=== PATIENT | female | born 1955 | race Caucasian/White ===

== ENCOUNTER 2023-11-05 18:52 | Emergency (ER) | payer MEDICARE ==
[2023-11-05 19:03] VITALS: RESP 18; TEMP 98.3
[2023-11-05] MEDS ORDERED: SODIUM CHLORIDE 0.9% 500 ML 500 ML IV STA (19:12)
--- NOTE | 2023-11-05 19:26 | ED ---
Fall HPI - General Chief Complaint: Syncope Stated Complaint: Fall w/Syncope Time Seen by Provider: 11/05/23 19:02 Source: EMS, RN notes reviewed, old records reviewed, Caregiver Mode of arrival: EMS Limitations: no limitations - History of Present Illness Initial Comments: This is a 68-year-old female to the emergency department for evaluation of a syn cope event, this event occurred prior to arrival with history of similar events in the past. Patient has no headache chest pain shortness breath abdominal pain, she did hit her head with this fall. Had chest pain. No shortness of breath. No complaints patient does not like being in the hospital MD Complaint: fall, other (Syncope) -: minutes(s) Fall From: standing When Fall Occurred: 1 hour [employer] Fall Witnessed: yes, by family Place Fall Occurred: home Loss of Consciousness: none Prolonged Down Time?: no Symptoms Prior to Fall: none Location: head Severity: moderate Severity scale (1-10): 3 Quality: sharp Context: tripped/slipped Associated Symptoms: denies - Related Data Allergies Allergy/AdvReac Type Severity Reaction Status Date / Time Penicillins Allergy Unknown Verified 11/05/23 19:00 Childhood Review of Systems ROS Statement: Those systems with pertinent positive or pertinent negative responses have been documented in the HPI. ROS Other: All systems not noted in ROS Statement are negative. Past Medical History Past Medical History: CVA/TIA, Fibromyalgia, Musculoskeletal Disorder, Rheumatoid Arthritis (RA) History of Any Multi-Drug Resistant Organisms: None Reported Past Surgical History: Appendectomy, Cholecystectomy, Hysterectomy Past Psychological History: No Psychological Hx Reported Smoking Status: Current every day smoker Past Alcohol Use History: Rare Past Drug Use History: Marijuana General Exam Limitations: no limitations General appearance: alert, in no apparent distress Head exam: Present: normocephalic, normal inspection. Absent: atraumatic (Right eye hematoma) Eye exam: Present: normal appearance, PERRL, EOMI. Absent: scleral icterus, conjunctival injection, periorbital swelling ENT exam: Present: normal exam, mucous membranes moist Neck exam: Present: normal inspection. Absent: tenderness, meningismus, lymphadenopathy Respiratory exam: Present: normal lung sounds bilaterally. Absent: respiratory distress, wheezes, rales, rhonchi, stridor Cardiovascular Exam: Present: regular rate, normal rhythm, normal heart sounds. Absent: systolic murmur, diastolic murmur, rubs, gallop, clicks GI/Abdominal exam: Present: soft, normal bowel sounds. Absent: distended, tenderness, guarding, rebound, rigid Extremities exam: Present: normal inspection, full ROM, normal capillary refill. Absent: tenderness, pedal edema, joint swelling, calf tenderness Back exam: Present: normal inspection Neurological exam: Present: alert, oriented X3, CN II-XII intact Psychiatric exam: Present: normal affect, normal mood Skin exam: Present: warm, dry, intact, normal color. Absent: rash Course Vital Signs 11/05/23 11/05/23 11/05/23 18:54 18:59 19:59 Temperature 98.3 F 98.3 F Pulse Rate 66 74 75 Respiratory 18 18 18 Rate Blood Pressure 109/58 107/79 102/36 O2 Sat by Pulse 96 96 96 Oximetry 11/05/23 22:54 Temperature 98.3 F Pulse Rate 69 Respiratory 18 Rate Blood Pressure 92/64 O2 Sat by Pulse 94 L Oximetry - Reevaluation(s) Reevaluation #1: 11/05/23 20:11 Medical records reviewed Reevaluation #2: Patient symptoms are unchanged with no recurrent syncope Reevaluation #3: Patient informed of results and questions answered Reevaluation #4: 11/05/23 19:26 Was pt. sent in by a medical professional or institution (LISA Soler, HOTEL ASSISTANT GENERAL MANAGER, urgent care, hospital, or custodial...) When possible be specific @ -no Did you speak to anyone other than the patient for history (EMS, parent, family, police, friend...)? What history was obtained from this source @ -no Did you review nursing and triage notes (agree or disagree)? Why? @ -agree Are old charts reviewed (outside hosp., previous admission, EMS record, old EKG, old radiological studies, urgent care reports/EKG's, custodial records)? Report findings @ -yes Differential Diagnosis (chest pain, altered mental status, abdominal pain women, abdominal pain men, vaginal bleeding, weakness, fever, dyspnea, syncope, headache, dizziness, GI bleed, back pain, seizure, CVA, palpatations, mental health, musculoskeletal)? @ -prior EKG interpreted by me (3pts min.). @ -yes X-rays interpreted by me (1pt min.). @ -no CT interpreted by me (1pt min.). @ -yes negative for acute disease U/S interpreted by me (1pt. min.). @ -no What testing was considered but not performed or refused? (CT, X-rays, U/S, labs)? Why? @ -none What meds were considered but not given or refused? Why? @ -none Did you discuss the management of the patient with other professionals (professionals i.e. Dr., PA, HOTEL ASSISTANT GENERAL MANAGER, lab, RT, psych nurse, delinquency prevention social worker, crystal cutter, teacher, targeting acquisition officer, telephonic nurse case manager)? Give summary @ -no Was smoking cessation discussed for >3mins.? @ -no Was critical care preformed (if so, how long)? @ -no Were there social determinants of health that impacted care today? How? (Homelessness, low income, unemployed, alcoholism, drug addiction, transportation, low edu. Level, literacy, decrease access to med. care, usp, rehab)? @ -none Was there de-escalation of care discussed even if they declined (Discuss DNR or withdrawal of care, Hospice)? DNR status @ -no What co-morbidities impacted this encounter? (DM, HTN, Smoking, COPD, CAD, Cancer, CVA, ARF, Chemo, Hep., AIDS, mental health diagnosis, sleep apnea, morbid obesity)? @ -none Was patient admitted / discharged? Hospital course, mention meds given and route, prescriptions, significant lab abnormalities, going to OR and other pertinent info. @ - 68 female to the emergency department for evaluation of this syncopal event prior to arrival. Patient presents today for evaluation of a syncopal event with no cause found. Patient has no complaints currently feels well and can be discharged Discharge Undiagnosed new problem with uncertain prognosis? @ -no Drug Therapy requiring intensive monitoring for toxicity (Heparin, Nitro, Insulin, Cardizem)? @ -no Were any procedures done? @ -no Diagnosis/symptom? @ -Sycope, fall, hematoma eye Acute, or Chronic, or Acute on Chronic? @ -Acute Uncomplicated (without systemic symptoms) or Complicated (systemic symptoms)? @ -Complicated Side effects of treatment? @ -no Exacerbation, Progression, or Severe Exacerbation? @ -exacerbation Poses a threat to life or bodily function? How? (Chest pain, USA, NV, pneumonia, PE, COPD, DKA, ARF, appy, cholecystitis, CVA, Diverticulitis, Homicidal, Suicidal, threat to staff... and all critical care pts) @ -yes with syncopal event Reevaluation #5: Differential Syncope: Valvular disease, hypertrophic cardiomyopathy, pulmonary embolism, tamponade, tachycardia, bradycardia, NV, hypovolemia, hemorrhage, dissection, anemia, intra cranial hemorrhage, seizure, hypoglycemia, carbon monoxide poisoning, this is not meant to be an all-inclusive list. Medical Decision Making - Medical Decision Making 68 female to the emergency department for evaluation of this syncopal event prior to arrival. Patient presents today for evaluation of a syncopal event with no cause found. Patient has no complaints currently feels well and can be discharged - Lab Data Result diagrams: 11/05/23 19:12 11/05/23 19:12 Lab Results 11/05/23 11/05/23 11/05/23 Range/Units 19:12 19:12 19:12 WBC 4.4 (3.8-10.6) k/uL RBC 3.25 L (3.80-5.40) m/uL Hgb 12.0 (11.4-16.0) gm/dL Hct 34.9 (34.0-46.0) % MCV 107.4 H (80.0-100.0) fL MCH 36.8 H (25.0-35.0) pg MCHC 34.3 (31.0-37.0) g/dL RDW 13.5 (11.5-15.5) % Plt Count 198 (150-450) k/uL MPV 7.9 Neutrophils % 40 % Lymphocytes % 49 % Monocytes % 6 % Eosinophils % 3 % Basophils % 1 % Neutrophils # 1.8 (1.3-7.7) k/uL Lymphocytes # 2.2 (1.0-4.8) k/uL Monocytes # 0.3 (0-1.0) k/uL Eosinophils # 0.1 (0-0.7) k/uL Basophils # 0.0 (0-0.2) k/uL Macrocytosis Moderate PT 11.1 (10.0-12.5) sec INR 1.0 (<1.2) APTT 22.7 (22.0-30.0) sec Sodium 136 L (137-145) mmol/L Potassium 4.2 (3.5-5.1) mmol/L Chloride 104 (98-107) mmol/L Carbon Dioxide 22 (22-30) mmol/L Anion Gap 10 mmol/L BUN 10 (7-17) mg/dL Creatinine 0.72 (0.52-1.04) mg/dL Est GFR (CKD-EPI)AfAm >90 (>60 ml/min/1.73 sqM) Est GFR (CKD-EPI)NonAf 87 (>60 ml/min/1.73 sqM) Glucose 109 H (74-99) mg/dL Calcium 9.1 (8.4-10.2) mg/dL Phosphorus 3.7 (2.5-4.5) mg/dL Magnesium 1.8 (1.6-2.3) mg/dL Total Bilirubin 1.0 (0.2-1.3) mg/dL AST 58 H (14-36) U/L ALT 31 (4-34) U/L Alkaline Phosphatase 94 (38-126) U/L Troponin I (0.000-0.034) ng/mL Total Protein 6.8 (6.3-8.2) g/dL Albumin 4.3 (3.5-5.0) g/dL 11/05/ Range/Units 19:12 WBC (3.8-10.6) k/uL RBC (3.80-5.40) m/uL Hgb (11.4-16.0) gm/dL Hct (34.0-46.0) % MCV (80.0-100.0) fL MCH (25.0-35.0) pg MCHC (31.0-37.0) g/dL RDW (11.5-15.5) % Plt Count (150-450) k/uL MPV Neutrophils % % Lymphocytes % % Monocytes % % Eosinophils % % Basophils % % Neutrophils # (1.3-7.7) k/uL Lymphocytes # (1.0-4.8) k/uL Monocytes # (0-1.0) k/uL Eosinophils # (0-0.7) k/uL Basophils # (0-0.2) k/uL Macrocytosis PT (10.0-12.5) sec INR (<1.2) APTT (22.0-30.0) sec Sodium (137-145) mmol/L Potassium (3.5-5.1) mmol/L Chloride (98-107) mmol/L Carbon Dioxide (22-30) mmol/L Anion Gap mmol/L BUN (7-17) mg/dL Creatinine (0.52-1.04) mg/dL Est GFR (CKD-EPI)AfAm (>60 ml/min/1.73 sqM) Est GFR (CKD-EPI)NonAf (>60 ml/min/1.73 sqM) Glucose (74-99) mg/dL Calcium (8.4-10.2) mg/dL Phosphorus (2.5-4.5) mg/dL Magnesium (1.6-2.3) mg/dL Total Bilirubin (0.2-1.3) mg/dL AST (14-36) U/L ALT (4-34) U/L Alkaline Phosphatase (38-126) U/L Troponin I <0.012 (0.000-0.034) ng/mL Total Protein (6.3-8.2) g/dL Albumin (3.5-5.0) g/dL - EKG Data -: EKG Interpreted by Me (EKG is atrial fibrillation 69 QRS 94 QTC 444) - Radiology Data Radiology results: report reviewed (CT brain C-spine negative for acute disease), image reviewed Disposition Clinical Impression: Vasovagal syncope, Fall, Head contusion, Hematoma of right eye region Disposition: HOME SELF-CARE Instructions (If sedation given, give patient instructions): Syncope (ED), Fall Prevention for Older Adults (ED) Is patient prescribed a controlled substance at d/c from ED?: No Referrals: Jatinder Green MD [Primary Care Provider] - 1-2 days Time of Disposition: 20:30
[2023-11-05 19:32] LABS: Basophils % (A) 1 %; Eosinophils # (A) 0.1 k/uL (0-0.7); Eosinophils % (A) 3 %; HCT 34.9 % (34.0-46.0); Lymphocytes # (A) 2.2 k/uL (1.0-4.8); Lymphocytes % (A) 49 %; MCH 36.8 pg (25.0-35.0); MCHC 34.3 g/dL (31.0-37.0); MCV 107.4 fL (80.0-100.0); Macrocytosis Moderate; Mean Platelet Volume 7.9; Monocytes # (A) 0.3 k/uL (0-1.0); Monocytes % (A) 6 %; Neutrophils # (A) 1.8 k/uL (1.3-7.7); Neutrophils % (A) 40 %; Platelet Count 198 k/uL (150-450); RBC 3.25 m/uL (3.80-5.40); RDW 13.5 % (11.5-15.5); WBC 4.4 k/uL (3.8-10.6)
[2023-11-05 19:42] LABS: ALT 31 U/L (4-34); AST 58 U/L (14-36); African American GFR (CKD) >90 (>60 ml/min/1.73 sqM); Albumin 4.3 g/dL (3.5-5.0); Alkaline Phosphatase 94 U/L (38-126); Anion Gap 10 mmol/L; Blood Urea Nitrogen 10 mg/dL (7-17); Calcium 9.1 mg/dL (8.4-10.2); Carbon Dioxide 22 mmol/L (22-30); Chloride 104 mmol/L (98-107); Glucose 109 mg/dL (74-99); Magnesium 1.8 mg/dL (1.6-2.3); Non-African American GFR(CKD) 87 (>60 ml/min/1.73 sqM); Phosphorus 3.7 mg/dL (2.5-4.5); Potassium 4.2 mmol/L (3.5-5.1); Sodium 136 mmol/L (137-145); Total Protein 6.8 g/dL (6.3-8.2)
[2023-11-05] MEDS ORDERED: LORazepam 2 MG/ML INJ IV STA (20:01)
[2023-11-05 20:04] LABS: Partial Thromboplastin Time 22.7 sec (22.0-30.0); Prothrombin Time 11.1 sec (10.0-12.5)
--- NOTE | 2023-11-05 20:21 | CT ---
EXAMINATION TYPE: CT brain cspine wo con CT DLP: 1411.5 mGycm, Automated exposure control for dose reduction was used. DATE OF EXAM: 11/05/2023 7:32 PM COMPARISON: None. CLINICAL INDICATION:Female, 68 years old with history of woo; syncope, fall TECHNIQUE: Brain: Multiple axial CT images of the brain were obtained without IV contrast. Cspine: Axial CT images from the skull base to the inferior aspect of T2 we obtained without intraven ous contrast. Coronal and sagittal reformatted images were also reviewed. FINDINGS: Brain: Extra-axial spaces: No abnormal extra-axial fluid collections. Ventricular system: Appear dilated in proportion to the degree of cerebral atrophy. Cerebral parenchyma: No increased attenuation to suggest acute intraparenchymal hemorrhage. The gra y-white matter interface appears maintained. Mild generalized brain atrophy. Scattered hypoattenuat ing areas are seen within the cerebral white matter, nonspecific but most often seen with chronic mattie rovascular ischemic changes; mild in degree. Cerebellum: No acute abnormality. Mass effect: No evidence of mass effect or midline shift. Intracranial vasculature: Atherosclerotic calcifications of the larger arteries near the skull base. Soft tissues: Small areas of increased attenuation in the scalp subcutaneous fat over the right foreh ead and posterior parietal-occipital region suggests small contusions. Visualized orbits: Orbital contents appear grossly intact. Calvarium/osseous structures: No evidence of calvarial fracture. Paranasal sinuses and mastoid air cells: Clear MRI is more sensitive for detecting acute processes such as infarct, and may be considered if clinica lly warranted. Cervical spine: Fracture: Craniocervical junction appears intact. The C1-C2 articulation appears somewhat rotated, co nsistent with patient position. No acute fractures seen. Osseous structures, spinal canal/neural foramina: Mild degenerative change of the anterior C1-C2 eleanor culation. Generally mild degenerative disc disease elsewhere without significant canal or neural fora chandu narrowing. Vertebral alignment: No traumatic malalignment. Neck soft tissues: No acute finding.. Calcifications noted involving the cervical carotid arteries, a nd along aortic arch Other: Lung apices show no acute infiltrate or pneumothorax. Moderate bilateral pulmonary emphysemat ous changes. IMPRESSION: CT head: 1. No acute intracranial CT abnormality. 2. Mild atrophy and chronic microvascular ischemic changes. CT cervical spine: 1. No evidence of cervical spine fracture or traumatic malalignment. 2. Mild cervical spondylosis. 3. Moderate pulmonary emphysematous changes.
[2023-11-05 23:15] VITALS: BP 92/64; PULSE 69
== END 2023-11-05 22:55 | disposition home or self-care (01) ==
LOC: EC 18:52
DX: S00.11XA Contusion of right eyelid and periocular area, initial encounter (principal); R55 Syncope and collapse; I48.91 Unspecified atrial fibrillation; F17.200 Nicotine dependence, unspecified, uncomplicated; F12.90 Cannabis use, unspecified, uncomplicated; Z88.0 Allergy status to penicillin; Z86.73 Personal history of transient ischemic attack (TIA), and cerebral infarction without residual deficits; W01.0XXA Fall on same level from slipping, tripping and stumbling without subsequent striking against object, initial encounter; Y92.009 Unspecified place in unspecified non-institutional (private) residence as the place of occurrence of the external cause
CPT/HCPCS: 99285; 36415; 80053; 83735; 84100; 84484; 85025; 85610; 85730; 72125; 70450; 96374; 96361; J2060